=== PATIENT | female | born 1950 | race Caucasian/White ===

== ENCOUNTER 2016-11-07 20:50 | Emergency (ER) | payer OTHER, MEDICARE ==
[2016-11-07 20:57] VITALS: BP 163/97; PULSE 79; RESP 16; TEMP 98.4; O2SAT 94
--- NOTE | 2016-11-07 21:01 | EDPHY ---
H & P Stated Complaint: left forearm lac cut with pruning sheer. Time Seen by Provider: 11/07/16 21:01 HPI/ROS: CHIEF COMPLAINT: Left forearm laceration HISTORY OF PRESENT ILLNESS: The patient presents to the ED with a left forearm laceration. She cut herself while working with a pruning addie prior to arrival. She denies any associated numbness or weakness. She has had some mild bleeding from the laceration. She denies additional injury. REVIEW OF SYSTEMS: A comprehensive 10 point review of systems is otherwise negative aside from elements mentioned in the history of present illness. Source: Patient - Personal History Current Tetanus/Diphtheria Vaccine: No Current Tetanus Diphtheria and Acellular Pertussis (TDAP): No - Medical/Surgical History Hx Asthma: No Hx Chronic Respiratory Disease: No Hx Diabetes: No Hx Cardiac Disease: No Hx Renal Disease: No Hx Cirrhosis: No Hx Alcoholism: No Hx HIV/AIDS: No Hx Splenectomy or Spleen Trauma: No Other PMH: asthma, COPD - Social History Smoking Status: Never smoked - Physical Exam Exam: General Appearance: Alert, no distress Skin: 1.5 cm laceration noted to the left forearm, mild venous bleeding noted. 2+ radial and ulnar pulses noted. Extremities: Nontender, full range of motion without evidence of tendon deficit noted Neurological: Sensation intact to light touch throughout the right upper extremity, 5/5 strength noted throughout right hand Constitutional: Initial Vital Signs Temperature (C) 36.9 C 11/07/16 20:51 Heart Rate 79 11/07/16 20:51 Respiratory Rate 16 11/07/16 20:51 Blood Pressure 163/97 H 11/07/16 20:51 O2 Sat (%) 94 11/07/16 20:51 O2 Delivery Mode Room Air Allergies/Adverse Reactions: codeine Allergy (Verified 11/07/16 20:58) Vomiting Penicillins Allergy (Verified 11/07/16 20:58) Home Medications: Medication Instructions Recorded Advair 250/50 (*) 11/07/16 Ventolin Hfa 11/07/16 Medical Decision Making Procedures: Procedure: Laceration repair. Verbal consent was obtained from the patient. The 2 cm laceration on the left forearm was anesthetized using lidocaine with epinephrine. The wound was irrigated per protocol, draped and explored to its base with a gloved finger. There were no deep structures involved. No tendon injury was identified. The wound was repaired with 5 4-0 Ethilon sutures. The wound repair was simple. The procedure was performed by myself. ED Course/Re-evaluation: The patient presents to the ED with an uncomplicated laceration to her upper extremity which was repaired by myself. The patient will be discharged home with customary aftercare instructions and return precautions. Plan for suture removal in 12 days. The patient did have her tetanus shot updated in the ED. Departure - Departure Disposition: Home, Routine, Self-Care Clinical Impression: Laceration of left forearm Condition: Good Instructions: Care For Your Stitches (ED), Laceration (ED) Additional Instructions: 1. Please return to the emergency department in 12 days for suture removal. Please keep the stitches covered with a Band-Aid and apply antibiotic ointment twice daily to stitches. 2. Return to the ED sooner for increasing pain, redness, swelling or fever. Referrals: Maine Walters MD [Primary Care Provider] - As per Instructions
[2016-11-07] MEDS ORDERED: TDAP ADULT 0.5 ML INJ (BOOSTRIX) IM ONE (21:25)
== END 2016-11-07 22:02 | disposition home or self-care (01) ==
PROC: 0HQEXZZ Repair Left Lower Arm Skin, External Approach (ICD-10-PCS; principal; 2016-11-07)
DX: S51.812A Laceration without foreign body of left forearm, initial encounter (principal); J44.9 Chronic obstructive pulmonary disease, unspecified; Z23 Encounter for immunization; W26.8XXA Contact with other sharp object(s), not elsewhere classified, initial encounter; Y99.8 Other external cause status; Y93.89 Activity, other specified

== ENCOUNTER 2016-12-05 22:37 | Emergency (ER) | payer OTHER, MEDICARE ==
[2016-12-05 22:45] VITALS: RESP 16; TEMP 99.7
--- NOTE | 2016-12-05 23:11 | EDPHY ---
H & P Stated Complaint: coughing up blood - prior Hx with assoc PNA Time Seen by Provider: 12/05/16 22:48 HPI/ROS: Chief Complaint: Coughing blood HPI: 66-year-old woman with a history of COPD had an episode this evening of having some phlegm in the throat and coughed and brought up some blood in clear mucus. Patient states this has happened about 4 times tonight. She has had a similar episode to this several years ago when she had bilateral pneumonia. Has had use her inhaler somewhat frequently recently. He is scheduled to see her new restaurant greeter, Dr. Unger tomorrow. Denies any fevers or chills. No recent travel. No chest pain. No nausea or vomiting. Has otherwise been in her usual state of health. ROS: 10 point Review of Systems is negative except as noted in the HPI. PMH: COPD Social History: Past smoking, occasional alcohol, no recreational drug use Family History: non-contributory Physical Exam: Gen: Awake, Alert, No Distress HEENT: Nose: no rhinorrhea Eyes: PERRLA, EOMI Mouth: Moist mucosa Neck: Supple, no JVD Chest: nontender, diffuse expiratory wheezing, no focal rales or rhonchi Heart: S1, S2 normal, no murmur Abd: Soft, non-tender, no guarding Back: no CVA tenderness, no midline tenderness Ext: no edema, non-tender Skin: no rash Neuro: CN II-XII intact, Sensation grossly intact, Strength 5/5 in bilateral upper and lower extremities - Medical/Surgical History Hx Asthma: No Hx Chronic Respiratory Disease: No Hx Diabetes: No Hx Cardiac Disease: No Hx Renal Disease: No Hx Cirrhosis: No Hx Alcoholism: No Hx HIV/AIDS: No Hx Splenectomy or Spleen Trauma: No Other PMH: PMHx: asthma, COPD, pna. PSHx: denies - Social History Smoking Status: Never smoked Constitutional: Initial Vital Signs Temperature (C) 37.6 C 12/05/16 22:37 Heart Rate 87 12/05/16 22:37 Respiratory Rate 16 12/05/16 22:37 Blood Pressure 183/104 H 12/05/16 22:37 O2 Sat (%) 91 L 12/05/16 22:37 O2 Delivery Mode Room Air Allergies/Adverse Reactions: codeine Allergy (Verified 11/07/16 20:58) Vomiting Penicillins Allergy (Verified 11/07/16 20:58) Home Medications: Medication Instructions Recorded Advair 250/50 (*) 11/07/16 Ventolin Hfa 11/07/16 Aspirin 12/05/16 Medical Decision Making - Diagnostics Imaging Results: Imaging Impressions Chest X-Ray 12/05/16 23:11 Impression: Findings most consistent with mild airways disease are noted. Imaging: I viewed and interpreted images myself ED Course/Re-evaluation: Chest x-ray is negative for focal infiltrate or mass. Coags are normal. CBC is normal. Chemistries unremarkable. Patient has not been coughing up any further blood here. She has an appointment with her restaurant greeter tomorrow. She has been given a new DuoNeb treatment for her wheezing is significantly improved. She will be discharged with follow-up as scheduled. I suspect her hemoptysis was secondary to any ENT source but I have not identified any active bleeding in the nose or oropharynx. - Data Points Laboratory Results: Laboratory Results 12/05/16 23:20 12/05/16 23:20 12/05/16 12/05/16 12/05/16 23:20 23:20 23:20 WBC 7.83 10^3/uL 10^3/uL (3.80-9.50) RBC 4.85 10^6/uL 10^6/uL (4.18-5.33) Hgb 14.5 g/dL g/dL (12.6-16.3) Hct 42.6 % % (38.0-47.0) MCV 87.8 fL fL (81.5-99.8) MCH 29.9 pg pg (27.9-34.1) MCHC 34.0 g/dL g/dL (32.4-36.7) RDW 13.2 % % (11.5-15.2) Plt Count 342 10^3/uL 10^3/uL (150-400) MPV 8.9 fL fL (8.7-11.7) Neut % (Auto) 63.6 % % (39.3-74.2) Lymph % (Auto) 27.3 % % (15.0-45.0) [place]field % (Auto) 6.1 % % (4.5-13.0) Eos % (Auto) 1.7 % % (0.6-7.6) Baso % (Auto) 1.0 % % (0.3-1.7) Nucleat RBC Rel Count 0.0 % % (0.0-0.2) Absolute Neuts (auto) 4.98 10^3/uL 10^3/uL (1.70-6.50) Absolute Lymphs (auto) 2.14 10^3/uL 10^3/uL (1.00-3.00) Absolute Monos (auto) 0.48 10^3/uL 10^3/uL (0.30-0.80) Absolute Eos (auto) 0.13 10^3/uL 10^3/uL (0.03-0.40) Absolute Basos (auto) 0.08 10^3/uL 10^3/uL (0.02-0.10) Absolute Nucleated RBC 0.00 10^3/uL 10^3/uL (0-0.01) Immature Gran % 0.3 % % (0.0-1.1) Immature Gran # 0.02 10^3/uL 10^3/uL (0.00-0.10) PT 13.0 SEC SEC (12.0-15.0) INR 0.99 (0.83-1.16) APTT 26.7 SEC SEC (23.0-38.0) Sodium 134 mEq/L mEq/L (134-144) Potassium 4.3 mEq/L mEq/L (3.5-5.2) Chloride 96 mEq/L L mEq/L (97-110) Carbon Dioxide 24 mEq/l mEq/l (22-31) Anion Gap 14 mEq/L mEq/L (8-16) BUN 9 mg/dL mg/dL (7-23) Creatinine 0.7 mg/dL mg/dL (0.6-1.0) Estimated GFR > 60 Glucose 99 mg/dL mg/dL (70-100) Calcium 9.6 mg/dL mg/dL (8.5-10.4) Medications Given: Discontinued Medications Albuterol/Ipratropium (Duoneb) 3 ml IH EDNOW ONE Stop: 12/06/16 00:14 Last Admin: 12/06/16 00:19 Dose: 3 ml Departure - Departure Disposition: Home, Routine, Self-Care Clinical Impression: Hemoptysis Condition: Good Instructions: Hemoptysis (ED) Additional Instructions: Follow up with her restaurant greeter as scheduled tomorrow. Return emergency department for increasing coughing up blood, lightheadedness, fainting, chest pain, shortness of breath, or any other concerns. Referrals: Maine Walters MD [Primary Care Provider] - As per Instructions Gato Unger MD [Medical Doctor] - As per Instructions
[2016-12-05 23:38] LABS: % IMMATURE GRANULYOCYTES 0.3 % (0.0-1.1); ABSOLUTE IMMATURE GRANULOCYTES 0.02 10^3/uL (0.00-0.10); ADD DIFF? NO; ADD MORPH? NO; ADD SCAN? NO; ATYPICAL LYMPHOCYTE FLAG 10 (0-99); FRAGMENT RBC FLAG 0 (0-99); HEMATOCRIT 42.6 % (38.0-47.0); HEMOGLOBIN 14.5 g/dL (12.6-16.3); LEFT SHIFT FLG 0 (0-99); LIPEMIA HEMOLYSIS FLAG 90 (0-99); MEAN CELL HEMOGLOBIN 29.9 pg (27.9-34.1); MEAN CELL VOLUME 87.8 fL (81.5-99.8); MEAN PLATELET VOLUME 8.9 fL (8.7-11.7); PLATELET CLUMPS FLAG 0 (0-99); PLATELET COUNT 342 10^3/uL (150-400); RED BLOOD CELL COUNT 4.85 10^6/uL (4.18-5.33); RED CELL DISTRIBUTION WIDTH 13.2 % (11.5-15.2)
[2016-12-05 23:49] LABS: ANION GAP 14 mEq/L (8-16); CALCIUM 9.6 mg/dL (8.5-10.4); CARBON DIOXIDE 24 mEq/l (22-31); CHLORIDE 96 mEq/L (97-110); CREATININE 0.7 mg/dL (0.6-1.0); GLOMERULAR FILTRATION RATE > 60; GLUCOSE 99 mg/dL (70-100); POTASSIUM 4.3 mEq/L (3.5-5.2); SODIUM 134 mEq/L (134-144)
[2016-12-05 23:52] LABS: INR 0.99 (0.83-1.16)
[2016-12-05 23:53] LABS: APTT 26.7 SEC (23.0-38.0)
[2016-12-06] MEDS ORDERED: IPRATROPIUM/ALBUTEROL 3 ML DEYVIAL IH ONE (00:13)
[2016-12-06 00:47] VITALS: BP 134/80; PULSE 65; O2SAT 97
== END 2016-12-06 00:50 | disposition home or self-care (01) ==
DX: R04.2 Hemoptysis (principal); J44.9 Chronic obstructive pulmonary disease, unspecified

== ENCOUNTER → 2017-01-18 | Outpatient (CLI) | payer OTHER, MEDICARE | LOC: FLAB 11:42 | PROVIDERS: ATTEND Internal Medicine Pulmonary Disease | DX: R04.2 Hemoptysis (principal) ==

== ENCOUNTER → 2017-05-19 | Outpatient (CLI) | payer OTHER, MEDICARE | LOC: GIMAGING 14:52 | PROVIDERS: ATTEND Family Medicine | DX: J98.4 Other disorders of lung (principal) | CPT/HCPCS: 71046-PO ==

== ENCOUNTER → 2017-06-22 | Outpatient (CLI) | payer OTHER, MEDICARE | LOC: FIMAGING 12:39 | PROVIDERS: ATTEND Internal Medicine Pulmonary Disease | DX: R91.8 Other nonspecific abnormal finding of lung field (principal) ==

== ENCOUNTER → 2017-11-11 | Outpatient (CLI) | payer OTHER, MEDICARE | LOC: GIMAGING 16:24 | PROVIDERS: ATTEND Family Medicine | DX: J45.31 Mild persistent asthma with (acute) exacerbation (principal); J42 Unspecified chronic bronchitis; R91.8 Other nonspecific abnormal finding of lung field | CPT/HCPCS: 71046-PO ==

== ENCOUNTER → 2018-02-16 | Outpatient (CLI) | payer OTHER, MEDICARE | LOC: FIMAGING 12:14 | PROVIDERS: ATTEND Internal Medicine Pulmonary Disease | DX: J45.909 Unspecified asthma, uncomplicated (principal) ==

== ENCOUNTER → 2018-05-25 | Outpatient (CLI) | payer OTHER, MEDICARE | LOC: FIMAGING 12:24 | PROVIDERS: ATTEND Family Medicine | DX: M85.89 Other specified disorders of bone density and structure, multiple sites (principal); Z12.31 Encounter for screening mammogram for malignant neoplasm of breast ==

== ENCOUNTER → 2018-09-26 | Outpatient (CLI) | payer OTHER, MEDICARE | LOC: BMCIMAGING 15:55 | PROVIDERS: ATTEND Family Medicine | DX: J44.9 Chronic obstructive pulmonary disease, unspecified (principal); J45.909 Unspecified asthma, uncomplicated; R05 Cough ==